=== PATIENT | female | born 1980 | race Caucasian/White ===

== ENCOUNTER 2016-08-16 05:30 | Day surgery (SDC) | payer MEDICAID ==
[~2016-08-16] VITALS: Ht 157.5 cm; Wt 60.8 kg
[2016-08-16] MEDS ORDERED: FAMO-90 PO (06:44)
[2016-08-16] MEDS ORDERED: OMEP20TC24 PO (06:45)
[2016-08-16] MEDS ORDERED: METH-426 PO (06:45)
[2016-08-16] MEDS ORDERED: MIDAZOLAM 2 MG/2 ML VIAL ONE ×2 (07:27)
[2016-08-16] MEDS ORDERED: fentaNYL 0.05 MG/ML VIAL ONE (07:27)
[2016-08-16] MEDS ORDERED: LIDOCAINE VISCOUS 2% 20 ML UDC ONE (07:27)
== END 2016-08-16 08:20 | disposition home or self-care (01) ==
LOC: MDS 05:30 → MMU 06:02 → MDS 08:20
PROVIDERS: ATTEND Internal Medicine Gastroenterology
DX: R10.13 Epigastric pain (principal)
CPT/HCPCS: 36415; 43239; 86677; J2250; J3010